=== PATIENT | male | born 1965 | race African-American/Black ===

== ENCOUNTER 2017-05-21 08:41 | Emergency (ER) | payer SELFPAY ==
[~2017-05-21] VITALS: Ht 190.5 cm; Wt 109.0 kg
[2017-05-21] MEDS ORDERED: HYDR-523 PO (09:07)
[2017-05-21] MEDS ORDERED: METO-293 PO (09:07)
[2017-05-21] MEDS ORDERED: MORPHINE SULFATE 10 MG/ML CPJ IM ONE (11:00)
[2017-05-21 11:09] VITALS: BP 136/87
== END 2017-05-21 11:49 | disposition home or self-care (01) ==
LOC: ER 10:23
DX: R51 Headache (principal); Z88.6 Allergy status to analgesic agent; Z88.8 Allergy status to other drugs, medicaments and biological substances
CPT/HCPCS: 96372; 99283; J2270